=== PATIENT | female | born 2000 | race Hispanic/Latino ===

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

== ENCOUNTER 2018-11-02 20:29 | Inpatient (IN) | payer BC ==
[2018-11-02] MEDS ORDERED: ACETAMINOPHEN 500 MG TAB ONE (21:04)
[2018-11-02 21:10] LABS: Absolute Lymphocytes (CBC) 0.8 K/uL (0.7-4.9); Basophils % 0.3 % (0-1.3); Hematocrit 38.3 % (36.0-45.0); Lymphocytes % 5.3 % (15.3-44.8); MPV 9.9 fL (7.6-11.3); Monocytes % 6.5 % (3.3-12.3); RBC Red Blood Cell Count 4.63 M/uL (3.86-4.86)
[2018-11-02] MEDS ORDERED: NA CHLORIDE 0.9% 3,000 ML ONE (21:16)
[2018-11-02 21:20] LABS: Protime INR 1.24
[2018-11-02 21:35] LABS: ALT/SGPT 19 U/L (12-78); AST/SGOT 12 U/L (15-37); Albumin 3.4 g/dL (3.4-5.0); Alkaline Phosphatase 75 U/L (45-117); BUN Blood Urea Nitrogen 9 mg/dL (7-18); Bicarbonate 23 mmol/L (21-32); Bilirubin Direct 0.1 mg/dL (0-0.2); Bilirubin Total 0.5 mg/dL (0.2-1.0); CKMB Creatine Kinase MB < 1.0 ng/mL (0.3-3.6); Creatine Phosphokinase 56 U/L (26-192); Glucose Level 146 mg/dL (74-106); Lipase 70 U/L (73-393); Potassium 3.4 mmol/L (3.5-5.1); Protein, Total 7.9 g/dL (6.4-8.2); Sodium Level 134 mmol/L (136-145); Troponin (Emerg Dept Use Only) < 0.02 ng/mL (0.0-0.045)
[2018-11-02] MEDS ORDERED: ONDANSETRON 4 MG/2 ML VIAL ONE (21:57)
[2018-11-02] MEDS ORDERED: MORPHINE 4 MG/ML SYR ONE (21:57)
[2018-11-02 22:01] LABS: Blood Morphology Comment NOT SEEN (NOT SEEN); Platelet Estimate ADEQ; Urine White Blood Cell Casts OK
[2018-11-02 22:23] LABS: Urine Bacteria 20-50 /HPF (<20); Urine Culture Reflex Order NOT NEEDED
[2018-11-02 22:24] LABS: Urine Blood 2+ (NEG); Urine Glucose NEGATIVE (NEG); Urine Protein 1+ (NEG); Urine Specific Gravity <1.005 (1.005-1.030)
[2018-11-02] MEDS ORDERED: CEFTRIAXONE/SWI 1gm 1 GM/10 ML SYR ONE (22:40)
[2018-11-03] MEDS ORDERED: ONDANSETRON 4 MG/2 ML VIAL IV PRN (00:26)
[2018-11-03] MEDS ORDERED: ALPRAZOLAM 0.25 MG TABLET PO PRN (00:26)
--- NOTE | 2018-11-03 00:30 | EDPHYS ---
Physician Documentation [facility] Name: Sobeida Rod Age: 18 yrs Sex: Female : 2000 Arrival Date: 11/02/2018 Time: 20:33 Bed 15 Private MD: ED Physician Caesar River HPI: 11/02 22:06 This 18 yrs old Female presents to ER via Ambulatory with complaints of pm1 Vomiting, Fever, Abdominal Pain. 22:06 The patient presents to the emergency department with nausea, vomiting, abdominal pain, pm1 right flank pain. Onset: The symptoms/episode began/occurred 2 day(s) ago. Possible causes: unknown. The symptoms are aggravated by food , liquids The symptoms are alleviated by nothing. Associated signs and symptoms: Pertinent positives: abdominal pain, fever, nausea, vomiting, Pertinent negatives: diarrhea, dysuria. Severity of symptoms: in the emergency department the symptoms are worse. The patient has not experienced similar symptoms in the past. The patient has not recently seen a physician, out of town. Historical: - Allergies: 20:40 No Known Allergies; jb4 - Home Meds: 20:40 None [Active]; jb4 - PMHx: 20:40 None; jb4 - PSHx: 20:40 ankle; jb4 - Immunization history:: Adult Immunizations up to date. - Social history:: Smoking status: Patient/guardian denies using tobacco, Patient/guardian denies using alcohol. - Ebola Screening: : No symptoms or risks identified at this time. ROS: 22:06 Eyes: Negative for injury, pain, redness, and discharge. pm1 22:06 ENT: Negative for injury, pain, and discharge, Neck: Negative for injury, pain, and swelling, Cardiovascular: Negative for chest pain, palpitations, and edema, Respiratory: Negative for shortness of breath, cough, wheezing, and pleuritic chest pain. 22:06 : Negative for injury, bleeding, discharge, and swelling, MS/Extremity: Negative for injury and deformity, Skin: Negative for injury, rash, and discoloration, Neuro: Negative for headache, weakness, numbness, tingling, and seizure. 22:06 Constitutional: Positive for fever, poor PO intake. 22:06 Abdomen/GI: Positive for abdominal pain, nausea and vomiting, Negative for diarrhea. 22:06 Back: Positive for flank pain, on the right, Negative for decreased range of motion. Exam: 22:06 Constitutional: This is a well developed, well nourished patient who is awake, alert, pm1 and in no acute distress. Head/Face: Normocephalic, atraumatic. Eyes: Pupils equal round and reactive to light, extra-ocular motions intact. Lids and lashes normal. Conjunctiva and sclera are non-icteric and not injected. Cornea within normal limits. Periorbital areas with no swelling, redness, or edema. ENT: Nares patent. No nasal discharge, no septal abnormalities noted. Tympanic membranes are normal and external auditory canals are clear. Oropharynx with no redness, swelling, or masses, exudates, or evidence of obstruction, uvula midline. Mucous membranes moist. Neck: Trachea midline, no thyromegaly or masses palpated, and no cervical lymphadenopathy. Supple, full range of motion without nuchal rigidity, or vertebral point tenderness. No Meningismus. Chest/axilla: Normal chest wall appearance and motion. Nontender with no deformity. No lesions are appreciated. Respiratory: Lungs have equal breath sounds bilaterally, clear to auscultation and percussion. No rales, rhonchi or wheezes noted. No increased work of breathing, no retractions or nasal flaring. 22:06 Skin: Warm, dry with normal turgor. Normal color with no rashes, no lesions, and no evidence of cellulitis. MS/ Extremity: Pulses equal, no cyanosis. Neurovascular intact. Full, normal range of motion. 22:06 Cardiovascular: Rate: tachycardic, Rhythm: regular, Pulses: no pulse deficits are appreciated, Heart sounds: normal, Edema: is not appreciated. 22:06 Abdomen/GI: Inspection: obese Bowel sounds: normal, Palpation: soft, mild abdominal tenderness, in the right lower quadrant and left lower quadrant, mass, is not appreciated, rebound tenderness, is not appreciated. 22:06 Back: pain, that is mild, of the right low back, normal spinal alignment noted. 22:06 Neuro: Orientation: is normal, Motor: is normal, moves all fours. Vital Signs: 20:52 BP 134 / 75; Pulse 155; Resp 20; Temp 103.1(O); Pulse Ox 97% on R/A; Weight 92.99 kg jb4 (R); Height 5 ft. 4 in. (162.56 cm); Pain 8/10; 21:30 BP 111 / 72; Pulse 129; Resp 23; Pulse Ox 100% on R/A; jb4 22:30 BP 115 / 60; Pulse 117; Resp 20; Temp 100.1(O); Pulse Ox 100% on R/A; jb4 23:30 BP 101 / 65; Pulse 113; Resp 19; Temp 98.8(O); Pulse Ox 97% on R/A; jb4 11/03 00:30 BP 107 / 70; Pulse 116; Resp 16; Pulse Ox 97% on R/A; jb4 01:15 BP 110 / 72; Pulse 113; Resp 18; Pulse Ox 97% on R/A; 4 11/02 20:52 Body Mass Index 35.19 (92.99 kg, 162.56 cm) 4 MDM: 11/02 20:45 Patient medically screened. [facility] 11/03 00:16 Data reviewed: vital signs. Data interpreted: Pulse oximetry: on room air is 97 %. pm1 Interpretation: normal. Counseling: I had a detailed discussion with the patient and/or guardian regarding: the historical points, exam findings, and any diagnostic results supporting the discharge/admit diagnosis, lab results, radiology results, the need for further work-up and treatment in the hospital. 00:26 Physician consultation: Demarcus Ling MD was called at 00:27, was contacted at 00:27, pm1 regarding admission, patient's condition. 11/02 20:52 Order name: Urine Culture pm11/02 20:52 Order name: Basic Metabolic Panel pm1 11/02 20:52 Order name: Blood Culture Adult (2) pm1 11/02 20:52 Order name: CBC with Diff pm11/02 20:52 Order name: Ckmb pm11/02 20:52 Order name: CPK pm11/02 20:52 Order name: Lactate pm11/02 20:52 Order name: LFT's; Complete Time: 21:38 pm11/02 20:52 Order name: Lipase; Complete Time: 21:38 pm11/02 20:52 Order name: Procalcitonin; Complete Time: 21:47 pm1 11/02 20:52 Order name: Protime (+inr); Complete Time: 21:21 pm1 11/02 20:52 Order name: Ptt, Activated; Complete Time: 21:21 pm11/02 20:52 Order name: Troponin (emerg Dept Use Only); Complete Time: 21:38 pm1 11/02 20:52 Order name: Urine Microscopic Only; Complete Time: 22:24 pm1 11/02 20:53 Order name: Flu; Complete Time: 21:47 pm11/02 20:53 Order name: Strep; Complete Time: 21:47 pm1 11/02 20:53 Order name: Urine Culture [facility] 11/02 20:53 Order name: Basic Metabolic Panel; Complete Time: 21:38 [facility] 11/02 20:54 Order name: Blood Culture [facility] 11/02 20:54 Order name: CBC with Automated Diff; Complete Time: 22:03 [facility] 11/02 20:54 Order name: CKMB Creatine Kinase MB; Complete Time: 21:38 [facility] 11/02 20:54 Order name: Creatine Phosphokinase; Complete Time: 21:38 [facility] 11/02 20:54 Order name: Lactate; Complete Time: 21:38 [facility] 11/02 21:46 Order name: Throat Culture [facility] 11/02 22:02 Order name: CBC Smear Scan; Complete Time: 22:03 [facility] 11/02 22:14 Order name: Urine Dipstick--Ancillary (enter results); Complete Time: 22:25 dc5 11/02 22:19 Order name: Test, Serum; Complete Time: 22:58 jb4 11/03 00:34 Order name: Comprehensive Metabolic Panel [facility] 11/03 00:35 Order name: Magnesium EDMD 11/03 00:35 Order name: Phosphorus [facility] 11/02 20:52 Order name: Chest Single View XRAY pm1 11/02 20:52 Order name: Accucheck; Complete Time: 21:32 pm11/02 20:52 Order name: Cardiac monitoring; Complete Time: 21:11 pm11/02 20:52 Order name: EKG - Nurse/Tech; Complete Time: 21:32 pm11/02 20:52 Order name: IV Saline Lock - Large Bore; Complete Time: 21:10 pm11/02 20:52 Order name: Labs collected and sent; Complete Time: 21:10 pm1 11/02 20:52 Order name: O2 Per Protocol; Complete Time: 21:11 pm1 11/02 20:53 Order name: O2 Sat Monitoring; Complete Time: 21:11 pm1 11/02 20:53 Order name: Urine Dipstick-Ancillary (obtain specimen); Complete Time: 22:21 pm1 11/02 20:53 Order name: CT Abd/Pelvis - IV Contrast Only pm1 11/03 00:35 Order name: Regular EDMS 11/03 00:35 Order name: CBC with Automated Diff EDMS Administered Medications: 11/02 20:49 Drug: Tylenol 1000 mg Route: PO; jb4 22:39 Follow up: Response: No adverse reaction; Temperature is decreased jb4 21:03 Drug: NS 0.9% (30 ml/kg) 30 ml/kg Route: IV; Rate: bolus; Site: right antecubital; jb4 23:41 Follow up: Response: No adverse reaction; IV Status: Completed infusion; IV Intake: jb4 2789ml 22:10 Drug: Zofran 4 mg Route: IVP; Site: left antecubital; jb4 22:40 Follow up: Response: No adverse reaction; Nausea is decreased jb4 22:12 Drug: morphine 4 mg Route: IVP; Site: left antecubital; jb4 22:42 Follow up: Response: No adverse reaction; Pain is decreased jb4 22:32 Drug: Rocephin 1 grams Route: IV; Rate: calculated rate; Site: left antecubital; jb4 22:34 Follow up: IV Status: Completed infusion; IV Intake: 10ml 4 11/03 00:32 Drug: NS 0.9% 1000 ml Route: IV; Rate: 125 ml/hr; Site: left antecubital; jb4 00:34 Follow up: Response: No adverse reaction; IV Status: Infusion continued upon admission jb4 Disposition: 07:13 Co-signature as Attending Physician, Caesar LAFLEUR I agree with the assessment and merced plan of care. PA/GLUELINE WORKER's history reviewed, patient interviewed, and examined. Disposition: 11/03/18 00:29 Hospitalization ordered by Demarcus Ling for Inpatient Admission. Preliminary diagnosis are Right sided pyelonephritis, Vomiting, Dehydration. - Bed requested for Telemetry/MedSurg (Inpatient). - Status is Inpatient Admission. jb4 - Condition is Stable. - Problem is new. - Symptoms have improved. UTI on Admission? Yes Signatures: Dispatcher [employer] EDMS Wendy Carvajal RN RN Caesar River MD MD cha Marinas, Patrick, GLUELINE WORKER GLUELINE WORKER pm1 Emory Sousa RN RN jb4 Corrections: (The following items were deleted from the chart) 00:47 00:29 Hospitalization Ordered by Demarcus Ling MD for Inpatient Admission. Preliminary diagnosis is Right sided pyelonephritis; Vomiting; Dehydration. Bed requested for Telemetry/MedSurg (Inpatient). Status is Inpatient Admission. Condition is Stable. Problem is new. Symptoms have improved. UTI on Admission? Yes. pm1 01:25 00:47 11/03/2018 00:29 Hospitalization Ordered by Demarcus Ling MD for Inpatient jb4 Admission. Preliminary diagnosis is Right sided pyelonephritis; Vomiting; Dehydration. Bed requested for Telemetry/MedSurg (Inpatient). Status is Inpatient Admission. Condition is Stable. Problem is new. Symptoms have improved. UTI on Admission? Yes.
--- NOTE | 2018-11-03 00:30 | ER ---
Nurse's Notes [facility] Name: Sobeida Rod Age: 18 yrs Sex: Female : 2000 Arrival Date: 11/02/2018 Time: 20:33 Bed 15 Private MD: Diagnosis: Right sided pyelonephritis;Vomiting;Dehydration Presentation: 11/02 20:40 Presenting complaint: Patient states: I have a headache, neck pain, my chest hurts when jb4 I breathe in and pain on the right side of my stomach when I take a deep breath. 20:40 Transition of care: patient was not received from another setting of care. Onset of jb4 symptoms was October 31, 2018. Risk Assessment: Do you want to hurt yourself or someone else? Patient reports no desire to harm self or others. Initial Sepsis Screen: Does the patient meet any 2 criteria? Temp <36.0*C (96.8*F)) or > 38.3*C (100.9*F). HR > 90 bpm. Yes Does the patient have a suspected source of infection? Yes: Acute abdominal pain If YES to both, name of provider notified: Daryl Rodriguez [employer] Care prior to arrival: None. 20:40 Method Of Arrival: Ambulatory jb4 20:40 Acuity: JUDY 3 jb4 Historical: - Allergies: 20:40 No Known Allergies; jb4 - Home Meds: 20:40 None [Active]; jb4 - PMHx: 20:40 None; jb4 - PSHx: 20:40 ankle; jb4 - Immunization history:: Adult Immunizations up to date. - Social history:: Smoking status: Patient/guardian denies using tobacco, Patient/guardian denies using alcohol. - Ebola Screening: : No symptoms or risks identified at this time. Screenin:50 Abuse screen: Denies threats or abuse. Nutritional screening: No deficits noted. jb4 Tuberculosis screening: No symptoms or risk factors identified. Fall Risk IV access (20 points). Assessment: 20:49 General: Appears in no apparent distress. uncomfortable, Behavior is calm, cooperative, jb4 appropriate for age. Pain: Complains of pain in face, chest, right lower quadrant and neck Pain does not radiate. Pain currently is 8 out of 10 on a pain scale. Quality of pain is described as throbbing, Pain began 2-3 days ago. Is continuous. Neuro: Level of Consciousness is awake, alert, obeys commands, Oriented to person, place, time, situation. Cardiovascular: skin is hot and diaphoretic . Rhythm is sinus tachycardia. Respiratory: Airway is patent Respiratory effort is even, unlabored, Respiratory pattern is symmetrical, tachypnea. 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 : No signs and/or symptoms were reported regarding the genitourinary system. EENT: No signs and/or symptoms were reported regarding the EENT system. Derm: Skin is intact, Skin is diaphoretic, Skin is normal, Skin temperature is hot. Musculoskeletal: Circulation, motion, and sensation intact. 21:31 Reassessment: Patient appears in no apparent distress at this time. No changes from jb4 previously documented assessment. Patient and/or family updated on plan of care and expected duration. Pain level reassessed. 22:36 Reassessment: Patient appears in no apparent distress at this time. Patient and/or jb4 family updated on plan of care and expected duration. Pain level reassessed. Patient is alert, oriented x 3, equal unlabored respirations, skin warm/dry/pink. Patient states feeling better. 23:50 Reassessment: Patient appears in no apparent distress at this time. Patient and/or jb4 family updated on plan of care and expected duration. Pain level reassessed. Patient is alert, oriented x 3, equal unlabored respirations, skin warm/dry/pink. PT is back from CT, reports feeling better, skin is now warm and dry, respirations are even unlabored, symmetrical and normal. reports decreased pain and overall feeling better. Patient states feeling better. 11/03 00:30 Reassessment: Patient appears in no apparent distress at this time. Patient and/or jb4 family updated on plan of care and expected duration. Pain level reassessed. Patient is alert, oriented x 3, equal unlabored respirations, skin warm/dry/pink. Patient states feeling better. 01:08 Reassessment: Patient appears in no apparent distress at this time. Patient and/or jb4 family updated on plan of care and expected duration. Pain level reassessed. Patient is alert, oriented x 3, equal unlabored respirations, skin warm/dry/pink. Report called to SOFIA Redd Patient states feeling better. Vital Signs: 11/02 20:52 BP 134 / 75; Pulse 155; Resp 20; Temp 103.1(O); Pulse Ox 97% on R/A; Weight 92.99 kg jb4 (R); Height 5 ft. 4 in. (162.56 cm); Pain 8/10; 21:30 BP 111 / 72; Pulse 129; Resp 23; Pulse Ox 100% on R/A; jb4 22:30 BP 115 / 60; Pulse 117; Resp 20; Temp 100.1(O); Pulse Ox 100% on R/A; jb4 23:30 BP 101 / 65; Pulse 113; Resp 19; Temp 98.8(O); Pulse Ox 97% on R/A; jb4 11/03 00:30 BP 107 / 70; Pulse 116; Resp 16; Pulse Ox 97% on R/A; jb4 01:15 BP 110 / 72; Pulse 113; Resp 18; Pulse Ox 97% on R/A; jb4 11/02 20:52 Body Mass Index 35.19 (92.99 kg, 162.56 cm) jb4 ED Course: 11/02 20:33 Patient arrived in ED. es 20:37 Emory Sousa, SOFIA is Primary Nurse. jb4 20:40 Arm band placed on left wrist. jb4 20:43 Daryl Rodriguez NP is PHCP. pm1 20:43 Caesar River MD is Attending Physician. pm1 20:50 Patient has correct armband on for positive identification. Placed in gown. Bed in low jb4 position. Call light in reach. Side rails up X 1. monitor and storage bin tender on. Pulse ox on. NIBP on. 20:55 Inserted saline lock: 20 gauge in right antecubital area, using aseptic technique. cc3 Blood collected. 20:56 Triage completed. jb4 21:19 Radiology exam delayed due to lab results not completed at this time. (HCG) eh (BUN/Creatinine) test not completed at this time. 21:22 Chest Single View XRAY In Process Unspecified. EDMS 22:02 Radiology exam delayed due to test not completed at this time. eh 22:06 IV discontinued, intact, bleeding controlled, No redness/swelling at site. Pressure jb4 dressing applied. 22:08 Inserted saline lock: 20 gauge in left antecubital area, using aseptic technique. jb4 23:45 CT Abd/Pelvis - IV Contrast Only In Process Unspecified. EDMS 11/03 00:27 Demarcus Ling MD is Hospitalizing Provider. pm1 01:24 No provider procedures requiring assistance completed. Patient admitted, IV remains in jb4 place. Administered Medications: 11/02 20:49 Drug: Tylenol 1000 mg Route: PO; jb4 22:39 Follow up: Response: No adverse reaction; Temperature is decreased jb4 21:03 Drug: NS 0.9% (30 ml/kg) 30 ml/kg Route: IV; Rate: bolus; Site: right antecubital; jb4 23:41 Follow up: Response: No adverse reaction; IV Status: Completed infusion; IV Intake: jb4 2789ml 22:10 Drug: Zofran 4 mg Route: IVP; Site: left antecubital; jb4 22:40 Follow up: Response: No adverse reaction; Nausea is decreased jb4 22:12 Drug: morphine 4 mg Route: IVP; Site: left antecubital; jb4 22:42 Follow up: Response: No adverse reaction; Pain is decreased jb4 22:32 Drug: Rocephin 1 grams Route: IV; Rate: calculated rate; Site: left antecubital; jb4 22:34 Follow up: IV Status: Completed infusion; IV Intake: 10ml jb4 11/03 00:32 Drug: NS 0.9% 1000 ml Route: IV; Rate: 125 ml/hr; Site: left antecubital; jb4 00:34 Follow up: Response: No adverse reaction; IV Status: Infusion continued upon admission jb4 Intake: 11/02 22:34 IV: 10ml; Total: 10ml. jb4 23:41 IV: 2789ml; Total: 2799ml. jb4 Outcome: 11/03 00:29 Decision to Hospitalize by Provider. pm1 01:24 Admitted to Tele accompanied by nurse, via wheelchair, room 430, with chart, Report jb4 called to SOFIA Redd 01:24 Condition: stable 01:24 Instructed on the need for admit, Demonstrated understanding of instructions. 01:25 Patient left the ED. jb4 Signatures: Dispatcher [employer] EDMS Miracle Steward Ervin eh Marinas, Patrick, DEVON [employer] pm1 Emory Sousa RN RN jb4 Lydia Quiñones cc3 Corrections: (The following items were deleted from the chart) 11/02 22:50 20:40 Initial Sepsis Screen: Does the patient meet any 2 criteria? Temp <36.0*C jb4 (96.8*F)) or > 38.3*C (100.9*F). HR > 90 bpm. Yes Does the patient have a suspected source of infection? Yes: Acute abdominal pain jb4
[2018-11-03] MEDS ORDERED: NA CHLORIDE 0.9% 1,000 ML ONE (00:46)
[2018-11-03] MEDS ORDERED: PIPER/TAZO/NS 4.5gm 4.5 GM/100 ML BAG IVPB SCH (00:48)
[2018-11-03] MEDS ORDERED: NA CHLORIDE 0.9% 1,000 ML IV SCH (01:00)
[2018-11-03] MEDS: NA CHLORIDE 0.9% 1,000 ML IV SCH ×5 (01:54→23:53)
[2018-11-03] MEDS ORDERED: PIPERACIL/TAZO 4.5 GM VIAL IV ONE (02:41)
[2018-11-03] MEDS ORDERED: NA CHLORIDE 0.9% 200 ML IV ONE (02:44)
[2018-11-03] MEDS: ACETAMINOPHEN 500 MG TAB PO PRN ×4 (02:58→16:27)
[2018-11-03 03:28] VITALS: BMI 34.7
[2018-11-03] MEDS ORDERED: MORPHINE 2 MG/ML SYR IV ONE (03:30)
--- NOTE | 2018-11-03 05:12 | P.HP ---
Certification for Inpatient Patient admitted to: Inpatient With expected LOS: >2 Midnights Patient will require the following post-hospital care: None Practitioner: I am a practitioner with admitting privileges, knowledge of patient current condition, hospital course, and medical plan of care. Services: Services provided to patient in accordance with Admission requirements found in Title 42 Section 412.3 of the Code of Federal Regulations Patient History Date of Service: 11/03/18 Reason for admission: Pyelonephritis/systemic inflammatory response syndrome History of Present Illness: Patient is a 18-year-old female who is been sick for the last 2-3 days. She thought she had a cold and that it would gradually go away on its own. However , she started having fever, shakes, and chills. She started having temperatures of greater than 101. She started having intractable nausea and vomiting. After the vomiting started she decided to come into the emergency room. Her in the emergency room her heart rate was greater than 120s & her blood pressure was 80s over 50s. She was bolused 2.7 L of IV fluids. Her heart rate and blood pressure improved. On the floor she continued to spike temperatures and her heart rate continues to go up. We have treat her with antipyretics. Continue with IV antibiotics. She was given a dose of Rocephin. Will give her Levaquin and Rocephin. Await culture results. Patient will need inpatient hospitalization because of the severity of her illness. Allergies No Known Allergies Allergy (Unverified 08/02/17 22:47) Home Medications: Ibuprofen [Motrin] 400 mg PO Q6HR 11/03/18 - Past Medical/Surgical History Has patient received pneumonia vaccine in the past: No Diabetic: No Past Medical History: Patient denies medical history -: Left Ankle Sx 2017, with metal plate - Family History Father Family History: Reviewed- Non-Contributory - Social History Smoking Status: Never smoker Alcohol use: No CD- Drugs: No Caffeine use: Yes Place of Residence: Home Review of Systems 10-point ROS is otherwise unremarkable Physical Examination - Vital Signs Temperature: 102.3 F Blood Pressure: 111/72 Pulse: 127 Respirations: 16 Pulse Ox (%): 100 - Physical Exam General: Alert, In no apparent distress, Oriented x3 HEENT: Atraumatic, PERRLA, Mucous membr. moist/pink, EOMI, Sclerae nonicteric Neck: Supple, 2+ carotid pulse no bruit, No LAD, Without JVD or thyroid abnormality Respiratory: Clear to auscultation bilaterally, Normal air movement Cardiovascular: No murmurs, Other (Tachycardic but no murmurs) Gastrointestinal: Normal bowel sounds, Soft and benign, Non-distended, Tenderness (Right-sided flank tenderness) Musculoskeletal: No clubbing, No swelling, No tenderness Integumentary: No rashes Neurological: Normal gait, Normal speech, Normal strength at 5/5 x4 extr, Normal tone, Sensation intact, Cranial nerves 3-12 intact, Normal affect Lymphatics: No axilla or inguinal lymphadenopathy - Studies Laboratory Data (last 24 hrs) 11/02/18 20:55: PT 14.5 H, INR 1.24, APTT 31.9 11/02/18 20:55: WBC 14.3 H, Hgb 12.6, Hct 38.3, Plt Count 158 11/02/18 20:55: Sodium 134 L, Potassium 3.4 L, BUN 9, Creatinine 1.06, Glucose 146 H, Total Bilirubin 0.5, AST 12 L, ALT 19, Alkaline Phosphatase 75, Lipase 70 L Microbiology Data (last 24 hrs): 11/02/18 21:10 Throat Group A Streptococcus Rapid Screen - Final 11/02/18 21:10 Nasopharnyx Influenza Type A Antigen Screen - Final 11/02/18 21:10 Nasopharnyx Influenza Type B Antigen Screen - Final Assessment & Plan - Problems (Diagnosis) (1) Pyelonephritis Current Visit: Yes Status: Acute (2) Systemic inflammatory response syndrome Current Visit: Yes Status: Acute (3) Tachycardia Current Visit: Yes Status: Acute (4) Hypotension Current Visit: Yes Status: Acute - Plan 1. Continue with IV hydration 2. Continue with IV antibiotics 3. Continue with pain control 4. Advanced diet as tolerated 5. Monitor labs including CBC and BMP; await culture results 6. GI and DVT prophylaxis Discharge Plan: Home Plan to discharge in: Greater than 2 days - Advance Directives Does patient have a Living Will: No Does patient have a Durable POA for Healthcare: No - Code Status/Comfort Care Code Status Assessed: Yes Code Status: Full Code Critical Care: No Time Spent Managing PTS Care (In Minutes): 45
[2018-11-03 06:11] LABS: ALT/SGPT 17 U/L (12-78); AST/SGOT 10 U/L (15-37); Albumin 2.7 g/dL (3.4-5.0); Alkaline Phosphatase 56 U/L (45-117); BUN Blood Urea Nitrogen 6 mg/dL (7-18); Bicarbonate 22 mmol/L (21-32); Bilirubin Total 0.4 mg/dL (0.2-1.0); Glucose Level 113 mg/dL (74-106); Magnesium 2.1 mg/dL (1.8-2.4); Phosphorus 1.3 mg/dL (2.5-4.9); Potassium 3.6 mmol/L (3.5-5.1); Sodium Level 140 mmol/L (136-145)
[2018-11-03 06:21] LABS: Absolute Lymphocytes (CBC) 0.6 K/uL (0.7-4.9); Basophils % 0.3 % (0-1.3); Eosinophils % 0.1 % (0-4.4); Hematocrit 30.3 % (36.0-45.0); Lymphocytes % 6.5 % (15.3-44.8); MPV 9.9 fL (7.6-11.3); Monocytes % 8.5 % (3.3-12.3); RBC Red Blood Cell Count 3.62 M/uL (3.86-4.86)
--- NOTE | 2018-11-03 07:54 | RAD REPORT ---
EXAM DESCRIPTION: RAD - Chest Single View - 11/02/2018 9:21 pm CLINICAL HISTORY: Abdominal pain, fever COMPARISON: July 2017 TECHNIQUE: AP portable chest image was obtained 2116 hours . FINDINGS: Lungs are clear. Heart and vasculature are normal. No measurable pleural effusion and no p neumothorax. No acute bony abnormality seen. No acute aortic findings suspected. IMPRESSION: No acute cardiopulmonary process. No significant interval change.
[2018-11-03] MEDS: Levofloxacin500mg IV 500 MG/100 ML BAG IV SCH (08:11)
[2018-11-03] MEDS: POTASS/SODIUM PHOSPHATE 1 PKT POWD.PACK PO SCH ×3 (08:13→11:30)
[2018-11-03] MEDS: CEFTRIAXONE/SWI 1gm 1 GM/10 ML SYR IV SCH ×2 (08:14→20:58)
--- NOTE | 2018-11-03 10:55 | RAD REPORT ---
EXAM DESCRIPTION: CT - Abdomen Pelvis W Contrast - 11/03/2018 1:31 am CLINICAL HISTORY: 18 years Female bilateral lower abdominal pain COMPARISON: None TECHNIQUE: Images were obtained in axial, sagittal, and coronal planes. Intravenous contrast was adm inistered. Arterial and venous phase images were obtained in the axial projection. This exam was performed according to our departmental dose-optimization program which includes use of Automated Exposure Control, adjustment of the mA and/or kV according to patient size and/or use of i terative reconstruction technique. FINDINGS: Probable fatty change involving the liver. Spleen is enlarged measuring 13.7 cm in greates t dimension. Unremarkable pancreas, gallbladder, and adrenal glands bilaterally. Mild to moderate right hydronephrosis. Abnormal decreased enhancement posterior right renal cortex wi th mild intimal enhancement right kidney. The findings could be consistent with right pyelonephritis. Mild left hydronephrosis. No obstructing renal calcifications bilaterally. Moderately distended blad william. Appendix within normal limits. No bowel obstruction, perforation, or inflammation. Deviation uterus t o the left. No abnormality abdominal aorta or portal vein. Dependent atelectatic change lower lungs bilaterally. No acute osseous abnormality. IMPRESSION: Suspected right pyelonephritis. No obstructing renal calcifications bilaterally. Appendix within normal limits. Enlarged spleen. Electronically signed by: Delia Bonner MD 11/02/2018 11:53 PM CDT Due to temporary technical issues with the PACS/Fluency reporting system, reports are being signed by the in house radiologist as a courtesy to ensure prompt reporting. The interpreting radiologist is f ully responsible for the content of the report.
--- NOTE | 2018-11-03 15:08 | EKG ---
Test Date: 2018-11-02 Test Time: 21:22:18 Commissary Worker: JESUS MANUEL MEASUREMENT RESULTS: Intervals: Rate: 130 NE: 138 QRSD: 80 QT: 274 QTc: 403 Lena: P: 12 NE: 138 QRS: 85 T: -21 INTERPRETIVE STATEMENTS: Sinus tachycardia T wave abnormality, consider inferior ischemia T wave abnormality, consider anterior ischemia Abnormal ECG No previous ECG available for comparison Electronically Signed On 11-03-18 15:05:40 CDT by Israel Thao
[2018-11-03] MEDS: ENOXAPARIN 40 MG/0.4 ML SQ SCH (16:28)
[2018-11-03 20:26] LABS: Urine Appearance CLEAR; Urine Bilirubin NEGATIVE (NEG); Urine Blood NEGATIVE (NEG); Urine Color YELLOW; Urine Glucose NEGATIVE (NEG); Urine Protein NEGATIVE (NEG); Urine Specific Gravity <=1.005 (1.005-1.030); Urine Urobilinogen 0.2 mg/dL (0.2-1.0)
[2018-11-03 20:28] LABS: Urine Microscopic Reflex ORDER UMIC
[2018-11-03 20:39] LABS: Urine Bacteria <20 /HPF (<20); Urine Culture Reflex Order REFLEXED; Urine RBC <5 /HPF (NONE SEEN)
[2018-11-04] MEDS: Levofloxacin500mg IV 500 MG/100 ML BAG IV SCH (05:22)
[2018-11-04 06:00] LABS: Absolute Lymphocytes (CBC) 1.3 K/uL (0.7-4.9); Basophils % 0.1 % (0-1.3); Eosinophils % 0.2 % (0-4.4); Hematocrit 31.5 % (36.0-45.0); Lymphocytes % 15.9 % (15.3-44.8); MPV 9.6 fL (7.6-11.3); Monocytes % 10.8 % (3.3-12.3)
[2018-11-04 06:12] LABS: ALT/SGPT 16 U/L (12-78); AST/SGOT 11 U/L (15-37); Albumin 2.7 g/dL (3.4-5.0); Alkaline Phosphatase 54 U/L (45-117); BUN Blood Urea Nitrogen 5 mg/dL (7-18); Bicarbonate 23 mmol/L (21-32); Bilirubin Total 0.2 mg/dL (0.2-1.0); Glucose Level 78 mg/dL (74-106); Magnesium 1.9 mg/dL (1.8-2.4); Phosphorus 2.5 mg/dL (2.5-4.9); Potassium 3.6 mmol/L (3.5-5.1); Protein, Total 6.3 g/dL (6.4-8.2); Sodium Level 140 mmol/L (136-145)
[2018-11-04] MEDS: NA CHLORIDE 0.9% 1,000 ML IV SCH ×2 (08:51→17:00)
[2018-11-04] MEDS: CEFTRIAXONE/SWI 1gm 1 GM/10 ML SYR IV SCH (08:53)
[2018-11-04] MEDS: POTASS/SODIUM PHOSPHATE 1 PKT POWD.PACK PO SCH ×3 (08:53→11:23)
[2018-11-04] MEDS: ENOXAPARIN 40 MG/0.4 ML SQ SCH (08:54)
[2018-11-04] MEDS ORDERED: POTASSIUM CL SA 10 MEQ TAB PO ONE (09:00)
[2018-11-04] MEDS ORDERED: Meropenem 1000 MG/VIAL IV SCH (12:00)
--- NOTE | 2018-11-04 13:09 | P.PN ---
Subjective Date of Service: 11/04/18 Chief Complaint: Pyelonephritis/systemic inflammatory response syndrome Subjective: Improving Patient seen and examined at bedside. family at bedside. Chart reviewed and case discussed with nursing staff. Discussed diagnosis and treatment plan the patient. All questions answered, patient verbalized understanding. She would like to go ahead with IV antibiotic treatment for 2 weeks for ESBL UTI. Clinically, patient doing well. No concerns or complaints this morning. Review of Systems 10-point ROS is otherwise unremarkable Physical Examination - Vital Signs Temperature: 98.8 F Blood Pressure: 105/57 Pulse: 119 Respirations: 18 Pulse Ox (%): 98 - Physical Exam General: Alert, In no apparent distress, Oriented x3 HEENT: Atraumatic, PERRLA, EOMI Neck: Supple, JVD not distended Respiratory: Clear to auscultation bilaterally, Normal air movement Cardiovascular: Regular rate/rhythm, Normal S1 S2 Gastrointestinal: Normal bowel sounds, No tenderness Musculoskeletal: No tenderness Integumentary: No rashes Neurological: Normal speech, Normal tone, Normal affect Lymphatics: No axilla or inguinal lymphadenopathy - Studies Microbiology Data (last 24 hrs): 11/02/18 22:05 Clean Catch Urine Batchelor Count - Final >100,000 CFU/ML. 11/02/18 22:05 Clean Catch Urine - Final Escherichia Coli Esbl Assessment And Plan - Current Problems (Diagnosis) (1) Pyelonephritis Current Visit: Yes Status: Acute Plan: Improving - continue IV antibiotics with meropenem. Levaquin discontinued. - PICC line ordered as patient will need IV meropenem for 2 weeks. (2) Urinary tract infection Current Visit: Yes Status: Acute (3) Infection due to ESBL-producing Escherichia coli Current Visit: Yes Status: Acute Plan: Patient will need IV meropenem for 2 weeks. PICC line ordered, Social work consulted for home IV antibiotics set up. (4) Systemic inflammatory response syndrome Current Visit: Yes Status: Acute Plan: Improving - continue antibiotics as above (5) Hypotension Current Visit: Yes Status: Acute (6) Tachycardia Current Visit: Yes Status: Acute - Plan DVT prophylaxis: Lovenox GI prophylaxis: None Diet: Regular Disposition: Pending home IV antibiotics set up and PICC line placement for IV meropenem q.8 hr x2 weeks.
[2018-11-04] MEDS: Meropenem 1,000 MG in NA CHLORIDE 0.9% 100 ML IV SCH ×2 (13:23→17:03)
[2018-11-04 23:15] VITALS: O2SAT 100
[2018-11-05] MEDS: Meropenem 1,000 MG in NA CHLORIDE 0.9% 100 ML IV SCH ×2 (00:32→09:25)
[2018-11-05] MEDS: NA CHLORIDE 0.9% 1,000 ML IV SCH ×2 (00:37→09:25)
[2018-11-05 06:16] LABS: BUN Blood Urea Nitrogen 6 mg/dL (7-18); Bicarbonate 26 mmol/L (21-32); Glucose Level 82 mg/dL (74-106); Phosphorus 3.3 mg/dL (2.5-4.9); Potassium 3.8 mmol/L (3.5-5.1); Sodium Level 144 mmol/L (136-145)
[2018-11-05] MEDS: ENOXAPARIN 40 MG/0.4 ML SQ SCH (09:00)
[2018-11-05] MEDS ORDERED: POTASSIUM CL SA 10 MEQ TAB PO ONE (09:00)
--- NOTE | 2018-11-05 10:48 | RAD REPORT ---
EXAM DESCRIPTION: RAD - Chest Single View - 11/05/2018 10:43 am CLINICAL HISTORY: Device placement PICC line placement COMPARISON: November 02, 2018 FINDINGS: A PICC line has been inserted with its tip in the distal superior vena cava. The lungs appear clear of acute infiltrate. The heart is normal size. IMPRESSION: PICC line with its tip in the distal superior vena cava
[2018-11-05 14:49] VITALS: BP 127/64; TEMP 98.2
--- NOTE | 2018-11-05 16:34 | P.DS ---
Admission Date: 11/03/18 Discharge Date: 11/05/18 Disposition: DC HOME/HOME HEALTH CARE Discharge Condition: GOOD Reason for Admission: Pyelonephritis/systemic inflammatory response syndrome - Problems (1) Pyelonephritis Current Visit: Yes Status: Acute (2) Urinary tract infection Current Visit: Yes Status: Acute (3) Infection due to ESBL-producing Escherichia coli Current Visit: Yes Status: Acute (4) Systemic inflammatory response syndrome Current Visit: Yes Status: Acute (5) Hypotension Current Visit: Yes Status: Acute (6) Tachycardia Current Visit: Yes Status: Acute Brief History of Present Illness: Patient is a 18-year-old female who is been sick for the last 2-3 days. She thought she had a cold and that it would gradually go away on its own. However , she started having fever, shakes, and chills. She started having temperatures of greater than 101. She started having intractable nausea and vomiting. After the vomiting started she decided to come into the emergency room. Her in the emergency room her heart rate was greater than 120s & her blood pressure was 80s over 50s. She was bolused 2.7 L of IV fluids. Her heart rate and blood pressure improved. On the floor she continued to spike temperatures and her heart rate continues to go up. We have treat her with antipyretics. Continue with IV antibiotics. She was given a dose of Rocephin. Will give her Levaquin and Rocephin. Await culture results. Patient will need inpatient hospitalization because of the severity of her illness. Hospital Course: Patient was admitted for pyelonephritis. She was on IV antibiotics. Cultures were sent, which were positive for E. SBO E. coli. A PICC line was then placed , she was started on IV meropenem. She will require meropenem for 2 weeks. Social work was consulted. Home IV antibiotics were set up. Patient and family were taught on how to provide IV antibiotics she otherwise did well throughout the stay. Her diagnoses/treatment plan were explained in detail to her family. All questions were answered, they verbalized understanding. She was then discharged home in a safe and stable manner. She will follow up with the primary care physician in 2 weeks for further follow up. Vital Signs/Physical Exam: Temp Pulse Resp BP Pulse Ox 98.2 F 119 H 18 127/64 99 11/05/18 12:00 11/05/18 12:00 11/05/18 12:00 11/05/18 12:00 11/05/18 12:00 General: Alert, In no apparent distress, Oriented x3 HEENT: Atraumatic, PERRLA, EOMI Neck: Supple, JVD not distended Respiratory: Clear to auscultation bilaterally, Normal air movement Cardiovascular: Regular rate/rhythm, Normal S1 S2 Gastrointestinal: Normal bowel sounds, No tenderness Musculoskeletal: No tenderness Integumentary: No rashes Neurological: Normal speech, Normal tone, Normal affect Lymphatics: No axilla or inguinal lymphadenopathy Laboratory Data at Discharge: WBC 8.4 K/uL (4.3-10.9) 11/04/18 05:28 Hgb 10.6 g/dL (12.0-15.0) L 11/04/18 05:28 Hct 31.5 % (36.0-45.0) L 11/04/18 05:28 Plt Count 165 K/uL (152-406) D 11/04/18 05:28 PT 14.5 SECONDS (9.5-12.5) H 11/02/18 20:55 INR 1.24 11/02/18 20:55 APTT 31.9 SECONDS (24.3-36.9) 11/02/18 20:55 Sodium 144 mmol/L (136-145) 11/05/18 05:20 Potassium 3.8 mmol/L (3.5-5.1) 11/05/18 05:20 BUN 6 mg/dL (7-18) L 11/05/18 05:20 Creatinine 0.66 mg/dL (0.55-1.3) 11/05/18 05:20 Glucose 82 mg/dL (74-106) 11/05/18 05:20 Phosphorus 3.3 mg/dL (2.5-4.9) 11/05/18 05:20 Magnesium 1.9 mg/dL (1.8-2.4) 11/04/18 05:28 Total Bilirubin 0.2 mg/dL (0.2-1.0) 11/04/18 05:28 AST 11 U/L (15-37) L 11/04/18 05:28 ALT 16 U/L (12-78) 11/04/18 05:28 Alkaline Phosphatase 54 U/L (45-117) 11/04/18 05:28 Lipase 70 U/L (73-393) L 11/02/18 20:55 Home Medications: Ibuprofen [Motrin*] 400 mg PO Q6HR 11/03/18 Meropenem [Merrem] 1,000 mg IV Q8H 14 Days vial 11/05/18 New Medications: Meropenem [Merrem] 1,000 mg IV Q8H 14 Days vial Patient Discharge Instructions: Please follow up with your primary care physician in 2-3 days. Please return to the Emergency room for worsening symptoms. New medication: Meropenem Diet: Regular Activity: Ad victorino Time spent managing pt's care (in minutes): 60
== END 2018-11-05 17:58 | disposition home or self-care (01) | DRG 690 ==
LOC: ER 20:29 → OBSVTOIN 11-03 00:53 → ERHOLD 11-03 00:53 → 4TH 11-03 01:10
PROVIDERS: ADMIT Hospitalist; ATTEND Family Medicine
PROC: 02HV33Z Insertion of Infusion Device into Superior Vena Cava, Percutaneous Approach (ICD-10-PCS; principal; 2018-11-04)
DX: N10 Acute pyelonephritis (principal); B96.20 Unspecified Escherichia coli [E. coli] as the cause of diseases classified elsewhere; Z16.12 Extended spectrum beta lactamase (ESBL) resistance; I95.9 Hypotension, unspecified; R00.0 Tachycardia, unspecified
CPT/HCPCS: 36415; 71045; 74177; 80048; 80053; 80076; 81003; 81015; 82550; 82553; 83605; 83690; 83735; 84100; 84145; 84484; 84703; 85025; 85610; 85730; 87040; 87070; 87077; 87081; 87086; 87088; 87186; 87804; 93005; 96365; 96366; 96375; 99285; J0696; J1650; J2270; J2405; J7030; Q9967